=== PATIENT | female | born 1960 | race Caucasian/White ===

== ENCOUNTER 2017-09-26 09:16 | Emergency (ER) | END 2017-09-26 11:42 | disposition home or self-care (01) ==

== ENCOUNTER 2018-02-21 17:56 | Emergency (ER) | END 2018-02-21 23:46 | disposition home or self-care (01) ==

== ENCOUNTER 2018-10-20 09:22 | Emergency (ER) | payer BC ==
[~2018-10-20] VITALS: Wt 68.2 kg
[~2018-10-20 09:22] MED LIST: ACET325T33 PO; IBUP-1542 PO
[2018-10-20 09:26] VITALS: BP 122/77; PULSE 77; RESP 20
[2018-10-20] MEDS ORDERED: KETOROLAC 30 MG INJ IM STA (10:15)
[2018-10-20] MEDS ORDERED: IBUP-1542 PO (11:20)
[2018-10-20] MEDS ORDERED: CYCL10TA7 PO (11:20)
--- NOTE | 2018-10-20 11:22 | ERD ---
ER Documentation Chief Complaint Chief Complaint lower back pain since yest, denies trauma HPI 58-year-old woman complaining of 1 week of right back pain, localized to the lower back and made worse with ambulation or bending forward. She has had no groin or flank pain, no dysuria or hematuria, no abdominal pain, no weight loss, no chest pain or shortness of breath. Patient denies any recent trauma, denies fevers or chills. ROS All systems reviewed and are negative except as per history of present illness. Medications Home Meds Active Scripts Cyclobenzaprine Hcl* (Cyclobenzaprine Hcl*) 10 Mg Tablet, 10 MG PO TID PRN for MUSCLE SPASMS, #15 TAB Prov:ROBSON ROSE MD 10/20/18 Ibuprofen* (Motrin*) 600 Mg Tab, 600 MG PO Q8 PRN for PAIN AND/OR INFLAMMATION, #30 TAB Prov:ROBSON ROSE MD 10/20/18 Ibuprofen* (Motrin*) 600 Mg Tab, 600 MG PO Q6H PRN for PAIN AND OR ELEVATED TEMP, #30 TAB Prov:MARKIE MENDEZ MD 02/21/18 Acetaminophen* (Tylenol*) 325 Mg Tablet, 2 TAB PO Q8 PRN for PAIN AND OR ELEVATED TEMP, #20 TAB Prov:MARKIE MENDEZ MD 02/21/18 Allergies Allergies: Uncoded Allergies: NKDA (Allergy, 02/16/11) PMhx/Soc History of Surgery: No Anesthesia Reaction: No Hx Neurological Disorder: No Hx Respiratory Disorders: No Hx Cardiac Disorders: No Hx Psychiatric Problems: No Hx Miscellaneous Medical Probl: Yes (HERNIA) Hx Alcohol Use: No Hx Substance Use: No Hx Tobacco Use: No Smoking Status: Never smoker FmHx Family History: No diabetes Physical Exam Vitals Vital Signs Date Temp Pulse Resp B/P (MAP) Pulse Ox O2 O2 Flow FiO2 Time Delivery Rate 10/20/18 99.2 77 20 122/77 97 09:26 (92) Physical Exam GENERAL: Well-developed, well-nourished, well-hydrated, in no apparent distress, looks nontoxic in appearance CARDIAC: Regular rate and rhythm, no murmurs rubs or gallops LUNGS: Clear bilaterally no wheezing crackles or stridor ABDOMEN: Soft nontender, no guarding, no rigidity, no rebound, no psoas sign no obturator sign. Normoactive bowel sounds SKIN: Warm and dry to touch, no abrasions, contusions, or hematomas, no lacerations, no ecchymosis, no target lesions, and without ulcers EXTREMITIES: No clubbing cyanosis or edema, calves are bilaterally symmetrical, no Homans sign, no popliteal cord sign. Distal pulses equal and bilateral PSYCH: Normal affect without agitation or irritability Results 24 hrs Laboratory Tests Test 10/20/18 10:24 Urine Color YELLOW Urine Clarity SLIGHTLY CLOUDY Urine pH 5.0 Urine Specific Gary 1.016 Urine Ketones NEGATIVE mg/dL Urine Nitrite NEGATIVE mg/dL Urine Bilirubin NEGATIVE mg/dL Urine Urobilinogen NEGATIVE mg/dL Urine Leukocyte Esterase TRACE Sveta/ul Urine Microscopic RBC 2 /HPF Urine Microscopic WBC 4 /HPF Urine Bacteria FEW /HPF Urine Mucus MANY /HPF Urine Hemoglobin NEGATIVE mg/dL Urine Glucose NEGATIVE mg/dL Urine Total Protein NEGATIVE mg/dl Current Medications Medications Dose Sig/Maximilian Start Time Status Last (Trade) Ordered Route PRN Stop Time Admin Dose Reason Admin Ketorolac 30 mg ONCE STAT 10/20/18 DC 10/20/18 Tromethamine IM 10:15 10:25 (Toradol) 10/20/18 10:16 Procedures/MDM Patient had no CVA or complaints of dysuria. I did administer Toradol 30 mg IM x1 for low back pain. Urinalysis was also checked and was negative for infection. Differential diagnoses considered, included but not limited to acute coronary syndrome, pulmonary embolism, aortic dissection, abdominal aortic aneurysm, sepsis, stroke, meningitis, encephalitis, pneumonia, appendicitis, cholecystitis, bowel obstruction, pyelonephritis, nephrolithiasis, cystitis, as well as metabolic, hematologic, and electrolyte abnormalities. As well as absce ss, cellulitis, fractures, and dislocations. Patient feels much better at this time, and vital signs are normal, symptoms have improved. I did give strict instructions to return to the ED if symptoms continue or worsen, patient will otherwise follow-up with primary care physician. Patient understood instructions and agreed to plan. Disclaimer: Inadvertent spelling and grammatical errors are likely due to EHR/dictation software use and do not reflect on the overall quality of patient care. Also, please note that the electronic time recorded on this note does not necessarily reflect the actual time of the patient encounter. Departure Diagnosis: Primary Impression: Lumbar sprain Encounter type: initial encounter Qualified Codes: S33.5XXA - Sprain of ligaments of lumbar spine, initial encounter Condition: Good Patient Instructions: Back Sprain/Strain ROBSON ROSE MD Oct 20, 2018 11:22
== END 2018-10-20 11:28 | disposition home or self-care (01) ==
LOC: FTE 09:22
DX: S33.5XXA Sprain of ligaments of lumbar spine, initial encounter (principal); X58.XXXA Exposure to other specified factors, initial encounter; Y92.9 Unspecified place or not applicable
CPT/HCPCS: 81001; 96372; 99284; J1885

== ENCOUNTER 2018-11-17 12:00 | Emergency (ER) | payer BC ==
[~2018-11-17] VITALS: Ht 160 cm; Wt 69.4 kg
[~2018-11-17 12:00] MED LIST changes: +CYCL10TA7 PO
[2018-11-17 12:03] VITALS: Ht 160 cm; Wt 69.4 kg
[2018-11-17] MEDS ORDERED: KETOROLAC 15 MG INJ IM STA (13:06)
[2018-11-17] MEDS ORDERED: METHOCARBAMOL 500 MG TAB PO ONE (13:30)
[2018-11-17] MEDS ORDERED: DEXAMETHASONE 10 MG/ML 1 ML INJ IM ONE (13:30)
[2018-11-17] MEDS ORDERED: METH750T93 PO (14:34)
--- NOTE | 2018-11-17 14:35 | ERD ---
ER Documentation Chief Complaint Chief Complaint lower back pain x 5 days ROS All systems reviewed and are negative except as per history of present illness. Medications Home Meds Active Scripts Methocarbamol* (Robaxin*) 750 Mg Tablet, 750 MG PO TID PRN for MUSCLE SPASMS, #30 TAB Prov:FANI GODINEZ DO 11/17/18 Cyclobenzaprine Hcl* (Cyclobenzaprine Hcl*) 10 Mg Tablet, 10 MG PO TID PRN for MUSCLE SPASMS, #15 TAB Prov:ROBSON ROSE MD 10/20/18 Ibuprofen* (Motrin*) 600 Mg Tab, 600 MG PO Q8 PRN for PAIN AND/OR INFLAMMATION, #30 TAB Prov:ROBSON ROSE MD 10/20/18 Ibuprofen* (Motrin*) 600 Mg Tab, 600 MG PO Q6H PRN for PAIN AND OR ELEVATED TEMP, #30 TAB Prov:MARKIE MENDEZ MD 02/21/18 Acetaminophen* (Tylenol*) 325 Mg Tablet, 2 TAB PO Q8 PRN for PAIN AND OR ELEVATED TEMP, #20 TAB Prov:MARKIE MENDEZ MD 02/21/18 Allergies Allergies: Uncoded Allergies: NKDA (Allergy, 02/16/11) PMhx/Soc Medical and Surgical Hx: pt denies Surgical Hx History of Surgery: No Anesthesia Reaction: No Hx Neurological Disorder: No Hx Respiratory Disorders: No Hx Cardiac Disorders: No Hx Psychiatric Problems: No Hx Miscellaneous Medical Probl: Yes (HERNIA) Hx Alcohol Use: No Hx Substance Use: No Hx Tobacco Use: No Smoking Status: Never smoker Physical Exam Vitals Vital Signs Date Temp Pulse Resp B/P (MAP) Pulse Ox O2 O2 Flow FiO2 Time Delivery Rate 11/17/18 98.9 80 18 124/75 97 12:03 (91) Physical Exam Const: No acute distress Head: Atraumatic Eyes: Normal Conjunctiva ENT: Normal External Ears, Nose and Mouth. Neck: Full range of motion. No meningismus. Resp: Clear to auscultation bilaterally Cardio: Regular rate and rhythm, no murmurs Abd: Soft, non tender, non distended. Normal bowel sounds Skin: No petechiae or rashes Back: No midline or flank tenderness Ext: No cyanosis, or edema Neur: Awake and alert Psych: Normal Mood and Affect Results 24 hrs Current Medications Medications Dose Sig/Maximilian Start Time Status Last (Trade) Ordered Route PRN Stop Time Admin Dose Reason Admin Ketorolac 15 mg ONCE STAT 11/17/18 DC 11/17/18 Tromethamine IM 13:06 13:18 (Toradol) 11/17/18 13:08 6 mg ONCE ONCE 11/17/18 DC 11/17/18 Dexamethasone IM 13:30 13:18 (Decadron) 11/17/18 13:31 500 mg ONCE ONCE 11/17/18 DC 11/17/18 Methocarbamol PO 13:30 13:24 (Robaxin) 11/17/18 13:31 Departure Diagnosis: Primary Impression: Back pain Back pain location: thoracic back pain Chronicity: unspecified Back pain laterality: unspecified Qualified Codes: M54.6 - Pain in thoracic spine Condition: Fair Patient Instructions: Back Pain (Acute Or Chronic) Referrals: [facility] YOU HAVE RECEIVED A MEDICAL SCREENING EXAM AND THE RESULTS INDICATE THAT YOU DO NOT HAVE A CONDITION THAT REQUIRES URGENT TREATMENT IN THE EMERGENCY DEPARTMENT. FURTHER EVALUATION AND TREATMENT OF YOUR CONDITION CAN WAIT UNTIL YOU ARE SEEN IN YOUR DOCTORS OFFICE WITHIN THE NEXT 1-2 DAYS. IT IS YOUR RESPONSIBILITY TO MAKE AN APPOINTMENT FOR FOLOW-UP CARE. IF YOU HAVE A PRIMARY DOCTOR --you should call your primary doctor and schedule an appointment IF YOU DO NOT HAVE A PRIMARY DOCTOR YOU CAN CALL OUR PHYSICIAN REFERRAL HOTLINE AT IF YOU CAN NOT AFFORD TO SEE A PHYSICIAN YOU CAN CHOSE FROM THE FOLLOWING [facility] [address] [facility]. [facility] [address] [facility]. [facility] [address] [facility] [facility]. [facility] [address] [facility]. [facility] [address] [facility]. [facility]. [address] Additional Instructions: Llame al doctor MAEMBER y arley jeff SILVANO PARA DENTRO DE 1-2 COE.Dgale a la secretaria que nosotros le instruimos hacer esta silvano.Avise o llame si see condicin se empeora antes de la silvano. Regresa aqui si peor o no mejor. FANI GODINEZ DO November 17, 2018 14:35
[2018-11-17 14:42] VITALS: BP 122/76; PULSE 77; RESP 18
== END 2018-11-17 14:43 | disposition home or self-care (01) ==
LOC: FTE 12:00
DX: M54.6 Pain in thoracic spine (principal)
CPT/HCPCS: 72072; J1100; J1885; Z7610; 96372